=== PATIENT | female | born 1995 | race Caucasian/White ===

== ENCOUNTER 2020-05-09 11:59 | Emergency (ER) | payer SELFPAY ==
[~2020-05-09] VITALS: Ht 160 cm; Wt 59.1 kg
[2020-05-09 12:08] VITALS: BP 120/88
== END 2020-05-09 13:45 | disposition home or self-care (01) ==
LOC: ER 11:59
DX: Z03.818 Encounter for observation for suspected exposure to other biological agents ruled out (principal)
CPT/HCPCS: 36415; 99281; 99283